=== PATIENT | male | born 1955 | race Caucasian/White ===

== ENCOUNTER 2020-12-30 10:57 | Inpatient (IN) | payer OTHER ==
[~2020-12-30] VITALS: Ht 172.7 cm; Wt 77.1 kg
[2020-12-30] MEDS ORDERED: SYNTHROID50 MCG (11:23)
[2021-01-03] MEDS ORDERED: INTESTINEX680 M1 PO (17:49)
[2021-01-03] MEDS ORDERED: LEVOFLOXACIN750 MG PO (17:49)
[2021-01-03] MEDS ORDERED: TAMS0.4C PO (17:49)
== END 2021-01-03 18:03 | disposition home or self-care (01) | DRG 690 ==
LOC: ER 10:57 → SURH 12-31 08:16
PROVIDERS: ADMIT Internal Medicine; ATTEND Internal Medicine
PROC: BW21ZZZ Computerized Tomography (CT Scan) of Abdomen and Pelvis (ICD-10-PCS; principal; 2020-12-30)
DX: N39.0 Urinary tract infection, site not specified (principal); E86.0 Dehydration; B96.20 Unspecified Escherichia coli [E. coli] as the cause of diseases classified elsewhere; N40.0 Benign prostatic hyperplasia without lower urinary tract symptoms; N45.1 Epididymitis; N41.9 Inflammatory disease of prostate, unspecified; E03.9 Hypothyroidism, unspecified; Z20.822 Contact with and (suspected) exposure to COVID-19

== ENCOUNTER 2021-05-01 08:00 | Inpatient (IN) | payer OTHER ==
[~2021-05-01] VITALS: Ht 165.1 cm; Wt 72.6 kg
[~2021-05-01 08:00] MED LIST: INTESTINEX680 M1 PO; LEVOFLOXACIN750 MG PO; SYNTHROID50 MCG; TAMS0.4C PO
[2021-05-01] MEDS ORDERED: B12 ACTIVE1000 MCG PO (10:09)
[2021-05-01] MEDS ORDERED: D3 + K2 DOTS 11 EACH PO (10:09)
[2021-05-01] MEDS ORDERED: FOLIC ACID0.8 M1 PO (10:09)
== END 2021-05-06 13:37 | disposition home or self-care (01) | DRG 714 ==
LOC: SURH 05-05 06:15 → O/R 05-05 06:15 → SURH 05-05 08:00 → EDBD 05-05 08:00 → SURH 05-05 09:00
PROVIDERS: ADMIT Urology; ATTEND Urology
PROC: 0TCC8ZZ Extirpation of Matter from Bladder Neck, Via Natural or Artificial Opening Endoscopic (ICD-10-PCS; 2021-05-05)
PROC: 0VB08ZZ Excision of Prostate, Via Natural or Artificial Opening Endoscopic (ICD-10-PCS; principal; 2021-05-05 09:00)
DX: N40.1 Benign prostatic hyperplasia with lower urinary tract symptoms (principal); N21.0 Calculus in bladder; R33.8 Other retention of urine; Z20.822 Contact with and (suspected) exposure to COVID-19